=== PATIENT | male | born 1955 | race Caucasian/White ===

== ENCOUNTER → 2018-04-24 | Outpatient (CLI) | payer OTHER ==
--- NOTE | 2018-04-24 15:34 | KCIC ---
EXAM: Bilateral hips and pelvis, 5 views. HISTORY: Pain and clicking. COMPARISON: None. FINDINGS: A frontal view of the pelvis and frontal and frog-leg views of both hips are obtained. There is slight sacralization of the right L5 transverse process. 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 There is no fracture, dislocation or subluxation. The femoral heads are normal in configuration. There is no significant decreased femoral head-neck offset to suggest significant impingement. IMPRESSION: No acute osseous finding. Electronically signed by: Rosalie House MD (04/24/2018 3:30 PM) [place] [id number]
== END | disposition home or self-care (01) ==
LOC: KCIC 14:55
PROVIDERS: ATTEND Physician Assistant Medical
DX: M25.552 Pain in left hip (principal); M25.551 Pain in right hip
CPT/HCPCS: 73521

== ENCOUNTER 2019-01-29 00:11 | Emergency (ER) | payer OTHER ==
[~2019-01-29] VITALS: Ht 182.9 cm; Wt 84.8 kg
[2019-01-29] MEDS ORDERED: PRAV20TA2 PO (00:29)
[2019-01-29] MEDS ORDERED: TAMS0.4C97 PO (00:29)
[2019-01-29 00:35] LABS: BASO % 1 % (0-3); EOS # 0.1 x10^3/uL (0.0-0.7); EOS % 2 % (0-3); HEMOGLOBIN 14.3 g/dL (13.0-17.5); LYMPH # 2.1 x10^3/uL (1.0-4.8); LYMPH % 29 % (24-48); MEAN CORPUSCULAR HEMOGLOBIN 30 pg (25-35); MEAN CORPUSCULAR HGB CONC 34 g/dL (31-37); MEAN CORPUSCULAR VOLUME 89 fL (79-100); MONO # 0.8 x10^3/uL (0.0-1.1); MONO % 11 % (0-9); NEUT # 4.1 x10^3uL (1.8-7.7); NEUT % 57 % (31-73); PLATELET COUNT 208 x10^3/uL (140-400); RED CELL DISTRIBUTION WIDTH 13.7 % (11.5-14.5); WHITE BLOOD COUNT 7.2 x10^3/uL (4.0-11.0)
[2019-01-29 00:43] LABS: CALCIUM 8.9 mg/dL (8.5-10.1); CREATININE 1.4 mg/dL (0.7-1.3); POTASSIUM 3.8 mmol/L (3.5-5.1)
[2019-01-29] MEDS ORDERED: KETOROLAC 30 MG/ML VIAL. IV ONE (00:45)
[2019-01-29] MEDS ORDERED: IV NORMAL SALINE 1000ML BAG 1,000 ML IV ONE (00:45)
[2019-01-29 00:49] LABS: ALBUMIN 3.8 g/dL (3.4-5.0); ALBUMIN/GLOBULIN RATIO 1.2 (1.0-1.7); TOTAL BILIRUBIN 0.4 mg/dL (0.2-1.0); TOTAL PROTEIN 7.1 g/dL (6.4-8.2)
--- NOTE | 2019-01-29 01:55 | RAD ---
INDICATION: Flank pain COMPARISON: None. TECHNIQUE: Axial CT images obtained through the abdomen and pelvis without contrast. Limited assessment of solid organ structures and vasculature secondary to lack of intravenous contrast.. One or more of the following individualized dose reduction techniques were utilized for this examination: 1. Automated exposure control; 2. Adjustment of the mA and/or kV according to patient size; 3. Use of iterative reconstruction technique. FINDINGS: Abdominal aorta is not aneurysmal. Scattered calcific atherosclerosis. No intrahepatic bile duct dilation. Gallbladder partially contracted. Haziness of the mesenteric fat in the upper abdomen with some prominent lymph nodes in the region. This is just inferior to the pancreas. Spleen unremarkable. No left-sided hydronephrosis. Urinary bladder is partially distended. No right-sided hydronephrosis. The appendix does not appear inflamed. No dilated loops of bowel to suggest obstruction. Questionable mild indistinctness of fat adjacent to the urinary bladder. Degenerative changes spine with multilevel central canal and neural foraminal stenosis. IMPRESSION: 1. No evidence of bowel obstruction. 2. No hydronephrosis. 3. There is some questionable mild indistinctness the fat adjacent to the urinary bladder. This is a questionable finding but would correlate with symptoms to ensure that this is not secondary to early inflammation from cystitis. 4. Within the mesentery of the upper abdomen there is mild haziness with some scattered mildly prominent lymph nodes in the region. This is located inferior to the pancreas. Nonspecific appearance with causes such as mesenteric panniculitis within the differential. This is not centered around the pancreas but would still correlate with symptoms in the region to ensure that there is not an alternative cause such as pancreatitis which would be considered less likely. Electronically signed by: Alexandr Ocasio MD (01/29/2019 1:52 AM) [facility]
[2019-01-29 02:45] LABS: BILIRUBIN,URINE NEGATIVE (NEG); CLARITY,URINE CLEAR; COLOR,URINE YELLOW; NITRITE,URINE NEGATIVE (NEG); PROTEIN,URINE NEGATIVE (NEG-TRACE); UROBILINOGEN,URINE 0.2 mg/dL (0.2 mg/dL)
[2019-01-29 02:58] LABS: BACTERIA,URINE 0 /HPF (0-FEW); RBC,URINE 0 /HPF (0-2); SQUAMOUS EPITHELIAL CELL,UR OCC /LPF; WBC,URINE OCC /HPF (0-4)
[2019-01-29 03:07] VITALS: BP 149/70
--- NOTE | 2019-01-29 03:07 | PHYS DOC ---
Past Medical History Past Medical History: High Cholesterol Additional Past Medical Histor: enlarged prostate Past Surgical History: No Surgical History Alcohol Use: None Drug Use: None Adult General Chief Complaint Chief Complaint: FLANK PAIN [facility] HPI 63-year-old male who is relatively healthy presents with a 2 week history of waxing and waning lower abdominal pain. He states the pain did get a little worse over the last couple of days. He states this woke him up the last 2 mornings. He states the pain is in his low abdomen but does radiate out to his flanks. He did have what he describes a small amount of blood in his urine. He was scared that he had kidney stones. He denies any fever chills or sweats. He's had no nausea or vomiting. He denies any melena or hematochezia. He states his b owel movements have been normal.[] Review of Systems Review of Systems Constitutional: Denies fever or chills [] Eyes: Denies change in visual acuity, redness, or eye pain [] HENT: Denies nasal congestion or sore throat [] Respiratory: Denies cough or shortness of breath [] Cardiovascular: No additional information not addressed in HPI [] GI: Per history of present illness[] : Denies dysuria or hematuria [] Musculoskeletal: Denies back pain or joint pain [] Integument: Denies rash or skin lesions [] Neurologic: Denies headache, focal weakness or sensory changes [] Endocrine: Denies polyuria or polydipsia [] All other systems were reviewed and found to be within normal limits, except as documented in this note. Current Medications Current Medications Current Medications Medications (Trade) Dose Ordered Sig/[facility] Start Time Stop Time Status Last Admin Dose Admin Ketorolac Tromethamine (Toradol 30mg Vial) 30 mg 1X ONCE 01/29/19 00:45 01/29/19 00:46 DC 01/29/19 01:12 30 MG Sodium Chloride 1,000 ml @ 1,000 mls/hr 1X ONCE 01/29/19 00:45 01/29/19 01:44 DC 01/29/19 01:10 1,000 MLS/HR Allergies Allergies Allergies Coded Allergies Type Severity Reaction Last Updated Verified No Known Drug Allergies 01/29/19 No Physical Exam Physical Exam Constitutional: Well developed, well nourished, no acute distress, non-toxic appearance. [] HENT: Normocephalic, atraumatic, bilateral external ears normal, oropharynx moist, no oral exudates, nose normal. [] Eyes: PERRLA, EOMI, conjunctiva normal, no discharge. [] Neck: Normal range of motion, no tenderness, supple, no stridor. [] Cardiovascular:Heart rate regular rhythm, no murmur [] Lungs & Thorax: Bilateral breath sounds clear to auscultation [] Abdomen: Bowel sounds normal, soft, no tenderness, no masses, no pulsatile masses. [] Skin: Warm, dry, no erythema, no rash. [] Back: No tenderness, no CVA tenderness. [] Extremities: No tenderness, no cyanosis, no clubbing, ROM intact, no edema. [] Neurologic: Alert and oriented X 3, normal motor function, normal sensory function, no focal deficits noted. [] Psychologic: Affect normal, judgement normal, mood normal. [] Current Patient Data Vital Signs Vital Signs Date Time Temp Pulse Resp B/P (MAP) Pulse Ox O2 Delivery O2 Flow Rate FiO2 01/29/19 00:30 97.9 76 20 138/86 (103) 98 Room Air 97.9 Lab Values Laboratory Tests Test 01/29/19 00:25 01/29/19 02:25 White Blood Count 7.2 x10^3/uL (4.0-11.0) Red Blood Count 4.70 x10^6/uL (4.30-5.70) Hemoglobin 14.3 g/dL (13.0-17.5) Hematocrit 42.0 % (39.0-53.0) Mean Corpuscular Volume 89 fL (79-100) Mean Corpuscular Hemoglobin 30 pg (25-35) Mean Corpuscular Hemoglobin Concent 34 g/dL (31-37) Red Cell Distribution Width 13.7 % (11.5-14.5) Platelet Count 208 x10^3/uL (140-400) Neutrophils (%) (Auto) 57 % (31-73) Lymphocytes (%) (Auto) 29 % (24-48) Monocytes (%) (Auto) 11 % (0-9) H Eosinophils (%) (Auto) 2 % (0-3) Basophils (%) (Auto) 1 % (0-3) Neutrophils # (Auto) 4.1 x10^3uL (1.8-7.7) Lymphocytes # (Auto) 2.1 x10^3/uL (1.0-4.8) Monocytes # (Auto) 0.8 x10^3/uL (0.0-1.1) Eosinophils # (Auto) 0.1 x10^3/uL (0.0-0.7) Basophils # (Auto) 0.0 x10^3/uL (0.0-0.2) Sodium Level 143 mmol/L (136-145) Potassium Level 3.8 mmol/L (3.5-5.1) Chloride Level 105 mmol/L (98-107) Carbon Dioxide Level 28 mmol/L (21-32) Anion Gap 10 (6-14) Blood Urea Nitrogen 20 mg/dL (8-26) Creatinine 1.4 mg/dL (0.7-1.3) H Estimated GFR (Cockcroft-Gault) 51.0 BUN/Creatinine Ratio 14 (6-20) Glucose Level 103 mg/dL (70-99) H Calcium Level 8.9 mg/dL (8.5-10.1) Total Bilirubin 0.4 mg/dL (0.2-1.0) Aspartate Amino Transferase (AST) 24 U/L (15-37) Alanine Aminotransferase (ALT) 42 U/L (16-63) Alkaline Phosphatase 90 U/L (46-116) Total Protein 7.1 g/dL (6.4-8.2) Albumin 3.8 g/dL (3.4-5.0) Albumin/Globulin Ratio 1.2 (1.0-1.7) Lipase 119 U/L (73-393) Urine Collection Type Unknown Urine Color Yellow Urine Clarity Clear Urine pH 6.0 Urine Specific [place] 1.015 Urine Protein Negative mg/dL (NEG-TRACE) Urine Glucose (UA) Negative mg/dL (NEG) Urine Ketones (Stick) Negative mg/dL (NEG) Urine Blood Negative (NEG) Urine Nitrite Negative (NEG) Urine Bilirubin Negative (NEG) Urine Urobilinogen Dipstick 0.2 mg/dL (0.2 mg/dL) Urine Leukocyte Esterase Negative (NEG) Urine RBC 0 /HPF (0-2) Urine WBC Occ /HPF (0-4) Urine Squamous Epithelial Cells Occ /LPF Urine Bacteria 0 /HPF (0-FEW) Urine Mucus Slight /LPF Laboratory Tests 01/29/19 00:25 Laboratory Tests 01/29/19 00:25 EKG EKG [] Radiology/Procedures Radiology/Procedures [] Impressions: PROCEDURE: CT ABDOMEN PELVIS WO CONTRAST INDICATION: Flank pain COMPARISON: None. TECHNIQUE: Axial CT images obtained through the abdomen and pelvis without contrast. Limited assessment of solid organ structures and vasculature secondary to lack of intravenous contrast.. One or more of the following individualized dose reduction techniques were utilized for this examination: 1. Automated exposure control; 2. Adjustment of the mA and/or kV according to patient size; 3. Use of iterative reconstruction technique. FINDINGS: Abdominal aorta is not aneurysmal. Scattered calcific atherosclerosis. No intrahepatic bile duct dilation. Gallbladder partially contracted. Haziness of the mesenteric fat in the upper abdomen with some prominent lymph nodes in the region. This is just inferior to the pancreas. Spleen unremarkable. No left-sided hydronephrosis. Urinary bladder is partially distended. No right-sided hydronephrosis. The appendix does not appear inflamed. No dilated loops of bowel to suggest obstruction. Questionable mild indistinctness of fat adjacent to the urinary bladder. Degenerative changes spine with multilevel central canal and neural foraminal stenosis. IMPRESSION: 1. No evidence of bowel obstruction. 2. No hydronephrosis. 3. There is some questionable mild indistinctness the fat adjacent to the urinary bladder. This is a questionable finding but would correlate with symptoms to ensure that this is not secondary to early inflammation from cystitis. 4. Within the mesentery of the upper abdomen there is mild haziness with some scattered mildly prominent lymph nodes in the region. This is located inferior to the pancreas. Nonspecific appearance with causes such as mesenteric panniculitis within the differential. This is not centered around the pancreas but would still correlate with symptoms in the region to ensure that there is not an alternative cause such as pancreatitis which would be considered less likely. Course & Med Decision Making Course & Med Decision Making Pertinent Labs and Imaging studies reviewed. (See chart for details) [ED course: Evaluation reveals a 63-year-old male who never really appeared any significant distress. His abdominal exam was benign. His repeat abdominal exam was benign. His abdominal CT scan did not show anything significant. His urinalysis was negative as was his blood work. Patient was symptom-free when I rechecked on him at 3 AM. Patient can go home.] Dragon Disclaimer Dragon Disclaimer This electronic medical record was generated, in whole or in part, using a voice recognition dictation system. Departure Departure Impression: Primary Impression: Abdominal pain Disposition: HOME, SELF-CARE Condition: IMPROVED Referrals: GORDY DIEHL PA-C (PCP) Patient Instructions: Abdominal Pain Additional Instructions: Return to the emergency department with any new or concerning symptoms Problem Qualifiers Primary Impression: Abdominal pain Abdominal location: lower abdomen, unspecified Qualified Codes: R10.30 - Lower abdominal pain, unspecified PABLO CHAMPION DO Jan 29, 2019 03:07
== END 2019-01-29 03:23 | disposition home or self-care (01) ==
LOC: ER 00:11
DX: R10.30 Lower abdominal pain, unspecified (principal); R31.9 Hematuria, unspecified; E78.00 Pure hypercholesterolemia, unspecified; N40.0 Benign prostatic hyperplasia without lower urinary tract symptoms
CPT/HCPCS: 36415; 74176; 80053; 81001; 83690; 85025; 96374; 99285; J1885; J7030

== ENCOUNTER 2019-09-10 16:31 | Inpatient (IN) | payer OTHER ==
[~2019-09-10] VITALS: Ht 182.9 cm; Wt 84.4 kg
[~2019-09-10 16:31] MED LIST: PRAV20TA2 PO; TAMS0.4C97 PO
[2019-09-10 16:45] VITALS: BP 157/74
--- NOTE | 2019-09-10 17:53 | EKG ---
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
[2019-09-10] MEDS: fentaNYL PF VIAL 100 MCG/2 ML VIAL IVP PRN ×3 (18:00→22:46)
[2019-09-10 18:16] LABS: BASO % 0 % (0-3); EOS # 0.1 x10^3/uL (0.0-0.7); EOS % 1 % (0-3); HEMATOCRIT 42.8 % (39.0-53.0); HEMOGLOBIN 14.4 g/dL (13.0-17.5); LYMPH # 1.9 x10^3/uL (1.0-4.8); LYMPH % 18 % (24-48); MEAN CORPUSCULAR HEMOGLOBIN 29 pg (25-35); MEAN CORPUSCULAR HGB CONC 34 g/dL (31-37); MEAN CORPUSCULAR VOLUME 88 fL (79-100); MONO # 0.9 x10^3/uL (0.0-1.1); MONO % 9 % (0-9); NEUT # 7.8 x10^3/uL (1.8-7.7); NEUT % 73 % (31-73); PLATELET COUNT 224 x10^3/uL (140-400); RED BLOOD COUNT 4.88 x10^6/uL (4.30-5.70); RED CELL DISTRIBUTION WIDTH 13.7 % (11.5-14.5); WHITE BLOOD COUNT 10.7 x10^3/uL (4.0-11.0)
[2019-09-10] MEDS ORDERED: PRAV40TA2 PO (18:16)
[2019-09-10] MEDS ORDERED: OMEP20CA16 PO (18:17)
[2019-09-10 18:33] LABS: ALBUMIN 3.9 g/dL (3.4-5.0); ALBUMIN/GLOBULIN RATIO 1.3 (1.0-1.7); C-REACTIVE PROTEIN 7.4 mg/L (0-3.3); CALCIUM 9.2 mg/dL (8.5-10.1); CREATININE 1.2 mg/dL (0.7-1.3); POTASSIUM 4.2 mmol/L (3.5-5.1); TOTAL BILIRUBIN 0.3 mg/dL (0.2-1.0); TOTAL PROTEIN 6.9 g/dL (6.4-8.2)
[2019-09-10 19:29] VITALS: BP 135/77
[2019-09-10] MEDS ORDERED: IOHEXOL 350 MG/ML 100 ML VIAL. IV ONE (19:45)
--- NOTE | 2019-09-10 22:18 | RAD ---
Exam: CT of chest with contrast INDICATION: Chest pain TECHNIQUE: Sequential axial images through the chest obtained following the administration of 100 mL of Omni 350 IV contrast. Sagittal and coronal reformatted images were reconstructed from the axial data and reviewed. 3-D reformatted images were reconstructed from the axial data and reviewed. Comparisons: 01/29/2019 FINDINGS: Visualized portions of the thyroid are unremarkable. No enlarged mediastinal lymph nodes are identified. Heart size is normal. Small pericardial effusion. Thoracic aorta has a normal course and caliber. Pulmonary artery is not enlarged. No pulmonary embolus identified within the main, lobar or segmental pulmonary arteries. Airways are patent. Strandy opacities is been portion the lungs likely representing atelectasis. No consolidation or pneumothorax. No suspicious lung nodules. No pleural effusion or thickening. Visualized upper abdomen is unremarkable. No suspicious osseous lesions or acute fractures. IMPRESSION: No pulmonary embolus identified within the main, lobar or segmental pulmonary arteries. Exposure: One or more of the following in the visualized dose reduction techniques were utilized for this examination: 1. Automated exposure control 2. Adjustment of the MA and/or KV according to patient size 3. Use of iterative of reconstructive technique Electronically signed by: Nguyễn Mars MD (09/10/2019 10:15 PM) [facility]
[2019-09-10 22:28] VITALS: BP 126/71
[2019-09-10] MEDS: ATORVASTATIN CALCIUM 10 MG TABLET. PO SCH (22:44)
[2019-09-10] MEDS: TAMSULOSIN 0.4 MG CAP.ER.24H. PO SCH (22:45)
[2019-09-11 02:54] VITALS: BP 124/63
[2019-09-11] MEDS: fentaNYL PF VIAL 100 MCG/2 ML VIAL IVP PRN ×2 (03:44→07:37)
[2019-09-11 07:00] VITALS: BP 106/63
[2019-09-11] MEDS: PANTOPRAZOLE 40 MG TABLET.DR. PO SCH (07:36)
--- NOTE | 2019-09-11 08:15 | PDOC1 ---
H & P. HPI: Mr. Montgomery is a 63-year-old male with a past medical history of hyperlipidemia, GERD, and history of pericarditis in the 1980s, who presented to the clinic yesterday with 2 day history of central sharp chest pain that he noted did not radiate anywhere, seems to be improved with leaning forward and was significantly worsened with respiration. He also notes some mild cough. He denies fever, chills, body aches. Chest pain does not radiate anywhere and is constant with respiration. He noted the pain to be between 8-10 out of 10 in severity and reminded him significantly of the pain that he experienced when he had pericarditis in the past. He was evaluated in clinic with an EKG which showed mild ST elevation in leads I,aVL and V4-V6. After discussion with the patient, it was determined that admission for thorough evaluation and cardiology consultation was appropriate. His labs are significant for CRP elevated at 7.4. His troponins are negative 3. He also has normal white blood cell count with mild left shift. His creatinine is 1.2 with a GFR of 61, which is equivalent to his baseline. A CT Angio was performed to rule out pulmonary embolism, aortic dissection, pneumonia, and it was negative for all of these findings, though did show a small pericardial effusion. He notes that pain is about the same this morning. No new concerns. ROS: Constitutional: Denies fever, fatigue, chills HEENT: Denies sore throat, vision changes Cardio: Denies chest pain, dyspnea with exertion, syncope, palpitations, edema Pulmonary: Denies shortness of breath, cough, wheezing GI: Denies nausea, vomiting, diarrhea, constipation : Denies dysuria, frequency, urgency, incontinence Skin: Denies new lesions Neuro: Denies weakness, paresthesias PMH: As above FAMILY HX: Father due to lung cancer. Otherwise noncontributory SOCIAL HX: Nonsmoker, no significant alcohol use or drug use. SURGICAL HX: He has had previous knee surgery, heel surgery, tonsillectomy and sinus surgery. MEDS: Reviewed and reconciled ALLERGIES: Reviewed PE: Alert, oriented, no acute distress EOMI, sclera non-icteric Neck supple Mildly tachycardic, regular rhythm, no murmur, no definitive rub appreciated with leaning forward CTAB, no wheezes, crackles or rhonchi, patient appears to be in pain with deep respirations Soft, NT, ND, normal bowel sounds No edema, cyanosis. Normal capillary refill. Calm, cooperative, mood/affect within normal limits ASSESSMENT & PLAN: Likely acute pericarditis, given elevated CRP, EKG changes, small pericardial effusion noted on CT Hyperlipidemia GERD Stage II CKD, at baseline Cardiology has been consulted Await echo Start ibuprofen 600 mg TID scheduled with colchicine 0.6 mg BID ALEXIS WOLFE MD Sep 11, 2019 08:15
[2019-09-11 08:23] LABS: CHOLESTEROL/HDL RATIO 4.4
[2019-09-11] MEDS: IBUPROFEN 200 MG TABLET. PO SCH ×3 (08:59→21:13)
[2019-09-11] MEDS: COLCHICINE 0.6 MG TABLET PO SCH ×2 (09:00→21:13)
--- NOTE | 2019-09-11 09:13 | PDOC2 ---
ZOE OLEARY ELEVATOR REPAIRER HELPER 09/11/19 0913: CARDIAC CONSULT DATE OF CONSULT Date of Consult DATE: 09/11/19 TIME: 08:42 REASON FOR CONSULT Reason for Consult: Chest pain, possible pericarditis REFERRING PHYSICIAN Referring Physician: Trusty SOURCE Source: Chart review, Patient HISTORY OF PRESENT ILLNESS HISTORY OF PRESENT ILLNESS This is a pleasant 63 yo male admitted for complains of chest pain. Reports that he started having this left upper chest pain 2 days ago. This pain just started while he was laying down. This is sharp duplicated with cough, supine position relieved when sitting up and also duplicated with deep breathing. No ARREOLA and no exertional CP. No vomiting. He thought that this was his GERD acting up. Also he has a little bit of sinus congestion but no rhinorrhea, sneezing but had some dry coughing spell last night which hurt his chest. He did have sinusitis Jhonatan and was treated with antibiotics. His pain is sharp that goes back and forth to his left inferior scapular region to anterior region. No recent falls or injury and no leg swelling or pain. 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 He does have hx of pericarditis in 1986 which the symptoms are about the same he said. Denies any palpiations, jaw pain and no diaphoresis. PAST MEDICAL HISTORY Cardiovascular: Hyperlipidemia, Other (Pericarditis) CENTRAL NERVOUS SYSTEM: Other (No pertinent history) GI: GERD Heme/Onc: No pertinent hx Hepatobiliary: No pertinent hx Psych: No pertinent hx Musculoskeletal: low back pain, Osteoarthritis Infectious disease: No pertinent hx ENT: Sincusitis, Other (PAUMA) Renal/: Benign prostatic enlarg. Endocrine: No pertinent hx Dermatology: No pertinent hx PAST SURGICAL HISTORY Past Surgical History: Tonsillectomy FAMILY HISTORY Family History noncontributory, no hx of autoimmune disease SOCIAL HISTORY Smoke: Quit (remotely) ALCOHOL: occassional Drugs: None Lives: with Family (spouse) CURRENT MEDICATIONS CURRENT MEDICATIONS Current Medications Medications (Trade) Dose Ordered Sig/Mark Route PRN Reason Start Time Stop Time Status Last Admin Dose Admin Fentanyl Citrate (Fentanyl 2ml Vial) 50 mcg PRN Q2HR PRN IVP PAIN 09/10/19 17:00 09/11/19 07:37 Tamsulosin HCl (Flomax) 0.4 mg HS PO 09/10/19 21:00 09/10/19 22:45 Pantoprazole Sodium (Protonix) 40 mg DAILYAC PO 09/11/19 07:30 09/11/19 07:36 Atorvastatin Calcium (Lipitor) 10 mg QHS PO 09/10/19 21:00 09/10/19 22:44 ALLERGIES ALLERGIES: Coded Allergies: No Known Drug Allergies (Unverified , 01/29/19) ROS Review of System 14 point ROS evaluated with pertinent positives noted per HPI PHYSICAL EXAM General: Alert, Oriented X3, Cooperative, No acute distress HEENT: Atraumatic, Mucous membr. moist/pink Lungs: Clear to auscultation, Normal air movement Heart: Regular rate (SR), Normal S1, Normal S2, No murmurs Abdomen: Soft, No tenderness Extremities: No cyanosis, No edema Skin: No breakdown, No significant lesion Neuro: Normal speech, Sensation intact Psych/Mental Status: Mental status NL, Mood NL MUSCULOSKELETAL: Osteoarthritic changes both hands VITALS/I&O VITALS/I&O: Vital Signs Date Time Temp Pulse Resp B/P (MAP) Pulse Ox O2 Delivery O2 Flow Rate FiO2 09/11/19 07:37 Room Air 09/11/19 02:54 98.4 108 20 124/63 (83) 97 98.4 09/10/19 20:00 2.0 I & O 09/10/19 09/10/19 09/11/19 15:00 23:00 07:00 Intake Total 0 ml Output Total 800 ml Balance 0 ml -800 ml LABS Lab: Laboratory Tests Test 09/10/19 18:00 09/10/19 22:00 09/11/19 00:20 White Blood Count 10.7 x10^3/uL (4.0-11.0) Red Blood Count 4.88 x10^6/uL (4.30-5.70) Hemoglobin 14.4 g/dL (13.0-17.5) Hematocrit 42.8 % (39.0-53.0) Mean Corpuscular Volume 88 fL (79-100) Mean Corpuscular Hemoglobin 29 pg (25-35) Mean Corpuscular Hemoglobin Concent 34 g/dL (31-37) Red Cell Distribution Width 13.7 % (11.5-14.5) Platelet Count 224 x10^3/uL (140-400) Neutrophils (%) (Auto) 73 % (31-73) Lymphocytes (%) (Auto) 18 % (24-48) L Monocytes (%) (Auto) 9 % (0-9) Eosinophils (%) (Auto) 1 % (0-3) Basophils (%) (Auto) 0 % (0-3) Neutrophils # (Auto) 7.8 x10^3/uL (1.8-7.7) H Lymphocytes # (Auto) 1.9 x10^3/uL (1.0-4.8) Monocytes # (Auto) 0.9 x10^3/uL (0.0-1.1) Eosinophils # (Auto) 0.1 x10^3/uL (0.0-0.7) Basophils # (Auto) 0.0 x10^3/uL (0.0-0.2) Erythrocyte Sedimentation Rate 8 (0-15) Sodium Level 141 mmol/L (136-145) Potassium Level 4.2 mmol/L (3.5-5.1) Chloride Level 105 mmol/L (98-107) Carbon Dioxide Level 31 mmol/L (21-32) Anion Gap 5 (6-14) L Blood Urea Nitrogen 20 mg/dL (8-26) Creatinine 1.2 mg/dL (0.7-1.3) Estimated GFR (Cockcroft-Gault) 61.0 BUN/Creatinine Ratio 17 (6-20) Glucose Level 96 mg/dL (70-99) Calcium Level 9.2 mg/dL (8.5-10.1) Total Bilirubin 0.3 mg/dL (0.2-1.0) Aspartate Amino Transferase (AST) 17 U/L (15-37) Alanine Aminotransferase (ALT) 36 U/L (16-63) Alkaline Phosphatase 76 U/L (46-116) Troponin I Quantitative < 0.017 ng/mL (0.000-0.055) < 0.017 ng/mL (0.000-0.055) < 0.017 ng/mL (0.000-0.055) C-Reactive Protein, Quantitative 7.4 mg/L (0-3.3) H Total Protein 6.9 g/dL (6.4-8.2) Albumin 3.9 g/dL (3.4-5.0) Albumin/Globulin Ratio 1.3 (1.0-1.7) Triglycerides Level 74 mg/dL (0-150) Cholesterol Level 161 mg/dL (0-200) LDL Cholesterol, Calculated 109 mg/dL (0-100) H VLDL Cholesterol, Calculated 15 mg/dL (0-40) Non-HDL Cholesterol Calculated 124 mg/dL (0-129) HDL Cholesterol 37 mg/dL (40-60) L Cholesterol/HDL Ratio 4.4 Laboratory Tests 09/10/19 18:00 Laboratory Tests 09/10/19 18:00 ASSESSMENT/PLAN ASSESSMENT/PLAN 1. Acute pericarditis: +trapezius ridge pain with diffuse ST elevation. Likely viral in etiology 2. HLP 3. Small pericardial effusion: Per CT. no hemodynamic compromise 4. GERD 5. Prior sinusitis Recommendations 1. NSAID therapy. on PPI already 2. Negative for PE. TTE today 3. LDL not on goal, increase statin, defer to PCP TANNA SHERMAN MD 09/11/19 1151: CARDIAC CONSULT ASSESSMENT/PLAN ASSESSMENT/PLAN Patient seen and examined. Agree with [facility] SPECIAL EDUCATION TEACHER's assessment and plan. Clinical presentation, physical exam and EKG findings consistent with acute pericarditis. Patient has had on other episode of pericarditis several years ago. Agree with high-dose NSAID's and check 2-D echocardiogram. Thank you for your consultation. ZOE OLEARY APRN Sep 11, 2019 09:13 TANNA SHERMAN MD Sep 11, 2019 11:51
[2019-09-11 11:00] VITALS: BP 99/57
[2019-09-11 11:39] LABS: INFLUENZA A PATIENT NEGATIVE (NEGATIVE); INFLUENZA B PATIENT NEGATIVE (NEGATIVE)
--- NOTE | 2019-09-11 12:18 | CARD ---
MR#: [id number] Date of Study: 09/11/2019 Ordering Physician: ALEXIS WOLFE, Referring Physician: ALEXIS WOLFE, Tech: Sarahi Decker RDCS APPROVED REPORT EXAM: Two-dimensional and M-mode echocardiogram with Doppler and color Doppler. Other Information Quality : Good INDICATION Chest Pain 2D DIMENSIONS RVDd2.4 (2.9-3.5cm)Left Atrium(2D)3.1 (1.6-4.0cm) IVSd0.7 (0.7-1.1cm)Aortic Root(2D)2.9 (2.0-3.7cm) LVDd4.4 (3.9-5.9cm)LVOT Diameter2.0 (1.8-2.4cm) PWd0.8 (0.7-1.1cm)LVDs2.4 (2.5-4.0cm) FS (%) 30.0 %SV66.6 ml LVEF(%)60.0 (>50%) Aortic Valve AoV Peak Rod.148.7cm/sAoV VTI20.0cm AO Peak GR.8.8mmHgLVOT VTI 24.02cm AO Mean GR.5mmHgAVA (VTI)3.70cm2 Mitral Valve MV E Mxgbiypr71.9cm/sMV DECEL QIQS323eq MV A Gpkvocus02.0cm/sE/A Ratio0.8 TDI Lateral E' P. V9.91cm/sMedial E' P. V8.69cm/s E/Lateral E'5.8E/Medial E'6.7 Tricuspid Valve TR P. Pfwcxcpn366to/sRAP IAAIJJLW2msXa TR Peak Gr.40ygSqTVCJ84sjFa Pulmonary Vein S1 Hdlhmsyk38.2cm/sS2 Iyrcbbts28.11cm/s D2 Armjwsbp81.1cm/s LEFT VENTRICLE The left ventricle is normal size. There is normal left ventricular wall thickness. The left ventricu lar systolic function is normal. The Ejection Fraction is 55-60%. There is normal LV segmental wall m otion. Transmitral Doppler flow pattern is Grade I-abnormal relaxation pattern. RIGHT VENTRICLE The right ventricle is normal size. The right ventricular systolic function is normal. ATRIA The left atrium size is normal. The right atrium size is normal. The interatrial septum is intact wit h no evidence for an atrial septal defect or patent foramen ovale as noted on 2-D or Doppler imaging. AORTIC VALVE The aortic valve is calcified but opens well. Doppler and Color Flow revealed no significant aortic r egurgitation. There is no significant aortic valvular stenosis. MITRAL VALVE The mitral valve is calcified but opens well. There is no evidence of mitral valve prolapse. There is no mitral valve stenosis. Doppler and Color-flow revealed trace mitral regurgitation. TRICUSPID VALVE The tricuspid valve is normal in structure and function. Doppler and Color Flow revealed trace tricus pid regurgitation. The PA pressure was estimated at 34 mmHg. There is no tricuspid valve stenosis. PULMONIC VALVE The pulmonic valve is not well visualized. Doppler and Color Flow revealed no pulmonic valvular regur gitation. There is no pulmonic valvular stenosis. GREAT VESSELS The aortic root is normal in size. The ascending aorta is normal in size. The IVC is normal in size a nd collapses >50% with inspiration. PERICARDIAL EFFUSION There is no evidence of significant pericardial effusion. Critical Notification Critical Value: No <Conclusion> The left ventricular systolic function is normal. The Ejection Fraction is 55-60%. There is normal LV segmental wall motion. Transmitral Doppler flow pattern is Grade I-abnormal relaxation pattern. Trace mitral regurgitation. Trace tricuspid regurgitation. The PA pressure was estimated at 34 mmHg. There is no evidence of significant pericardial effusion. Signed by : Bienvenido Eduardo, Electronically Approved : 09/11/2019 12:17:38
--- NOTE | 2019-09-11 14:15 | NUR ---
SS following for discharge planning. SS reviewed pt chart. Pt is self pay pt. HCFS following for self pay status. Pt is from home with spouse and is currently on room air. SS will continue to follow for discharge planning.
[2019-09-11 15:00] VITALS: BP 97/60
[2019-09-11 19:35] VITALS: BP 115/56
--- NOTE | 2019-09-11 20:01 | EKG ---
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
--- NOTE | 2019-09-11 20:11 | NUR ---
Pt states he "feels much better than I did." But does state 5/10 chest pain with deep inspiration or when bending over. ST elevation noted on tele and on 12 lead EKG obtained stat at 1947. notes mention EKG consistent with pericarditis, but Dr. Zamora paged to review. Order received for follow up 12 lead EKG in am. Will continue to monitor.
[2019-09-11] MEDS: FLUTICASONE 50MCG/NASAL SPRAY 16GM BOTTLE. NS SCH (21:11)
[2019-09-11] MEDS: TAMSULOSIN 0.4 MG CAP.ER.24H. PO SCH (21:12)
[2019-09-11] MEDS: ATORVASTATIN CALCIUM 10 MG TABLET. PO SCH (21:12)
[2019-09-11 23:40] VITALS: BP 119/57
[2019-09-12 03:25] VITALS: BP 108/56
--- NOTE | 2019-09-12 05:56 | EKG ---
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
[2019-09-12 07:47] VITALS: BP 100/52
[2019-09-12] MEDS: FLUTICASONE 50MCG/NASAL SPRAY 16GM BOTTLE. NS SCH (08:02)
[2019-09-12] MEDS: COLCHICINE 0.6 MG TABLET PO SCH (08:02)
[2019-09-12] MEDS: IBUPROFEN 200 MG TABLET. PO SCH (08:03)
[2019-09-12] MEDS: PANTOPRAZOLE 40 MG TABLET.DR. PO SCH (08:03)
[2019-09-12] MEDS ORDERED: COLC0.6T34 PO (09:19)
[2019-09-12] MEDS ORDERED: IBUP-1670 PO (09:19)
[2019-09-12 11:27] VITALS: BP 111/57
--- NOTE | 2019-09-12 12:11 | NUR ---
Discharge Note: LORRAINE RANDHAWA Discharge instructions and discharge home medications reviewed with Patient and a copy given. All questions have been answered and understanding verbalized. The following instructions and handouts were given: COLCRYS, IBUPROFEN, PERICARDITIS Discontinued lines and drains: Peripheral IV intact. Patient discharged to Home or Self Care with Self via Wheelchair
--- NOTE | 2019-09-12 14:04 | DS ---
DATE OF DISCHARGE: 09/12/2019 PRIMARY DIAGNOSIS: Pericarditis. ADDITIONAL DIAGNOSES: Pleuritic chest pain, hyperlipidemia, gastroesophageal reflux disease, benign prostatic hypertrophy. CHIEF COMPLAINT AND HISTORY OF PRESENT ILLNESS: This is a 63-year-old white male admitted with the complaints of chest pain that happened rather abruptly, bringing him to the Emergency Room. It was worse with the breath as well as coughing. It was relieved by leaning forward. He had a prior history back in 1986 of pericarditis out of the blue and never was explained. SUMMARY OF STAY: The patient was admitted and started on ibuprofen and colchicine with improvement of his pain to the point where he was almost pain free on the day of discharge, but still a little bit with a deep breath. He had no other significant findings. Cardiology felt pericarditis was most likely an addition. It was felt he could be dismissed on the ibuprofen and colchicine with the outpatient followup next week in Dr. Ocasio's office to further direct therapy from there if any is needed. DISPOSITION: The patient is discharged to home. DIET: Regular. ACTIVITY: As tolerated, office with Dr. Ocasio or Dr. Todd this week. DISCHARGE MEDICATIONS: Listed on the med rec on his regular meds. In addition, he will be taking colchicine 0.6 b.i.d. and ibuprofen 600 t.i.d. in the interim. ERLINDA MACDONALD MD DR: BETTY/angela JOB#: [id number] / [id number] Dr. Chance Mccullough
== END 2019-09-12 12:12 | disposition home or self-care (01) | DRG 316 ==
LOC: 2 NORTH 16:31
PROVIDERS: ADMIT Family Medicine; ATTEND Family Medicine
DX: I30.9 Acute pericarditis, unspecified (principal); R07.89 Other chest pain; K21.9 Gastro-esophageal reflux disease without esophagitis; E78.5 Hyperlipidemia, unspecified
CPT/HCPCS: 36415; 71275; 80053; 80061; 84443; 84484; 85025; 85651; 86140; 87804; 93005; 93306; J3010; G0378

== ENCOUNTER → 2019-11-05 | Day surgery (SDC) | payer MEDICARE ==
[~2019-11-05] MED LIST changes: +ALBU2.5V8 NEB; +APIX5TAB PO; +ASPI-612 PO; +COLC0.6T34 PO; +HYDROmorphone 2 MG/ML VIAL IV PRN; +IBUP-1670 PO; +IV RINGERS,LACTATED 1000ML 1,000 ML IV SCH; +LIDOCAINE 2% PF 5 ML VIAL. ONE; +METO25TA4 PO; +MORPHINE SULFATE 2 MG/ML VIAL. IV PRN; +OMEP20CA16 PO; +ONDANSETRON PF 4 MG/2 ML VIAL. IV PRN; +PRAV40TA2 PO; +PROCHLORPERAZINE 10 MG/2 ML VIAL. IV PRN; +PROPOFOL 40 ML IV ONE; +SODIUM PHOSPHATES 19/7GM 133 ML ENEMA. PR ONE; +fentaNYL PF VIAL 100 MCG/2 ML VIAL IV PRN
[2019-11-05 15:10] VITALS: BP 98/60
--- NOTE | 2019-11-05 23:30 | HP ---
ADMIT DATE: 11/05/2019 REFERRING PHYSICIAN: Jaxon Barclay MD REASON FOR CONSULTATION: Iron deficiency anemia, CRC screening and dysphagia. HISTORY OF PRESENT ILLNESS: This is a 64-year-old male with past medical history significant for pericarditis, hyperlipidemia, GERD, osteoarthritis, status post sinus surgery, tonsillectomy, knee and foot surgery, seen with anemia, had colon test approximately 10 years ago which was unrevealing at that time. He does have intermittent dysphagia now for solids, but no melena and/or hematochezia. Weight and appetite are stable. He is otherwise without additional complaints. PAST MEDICAL AND SURGICAL HISTORY: 1. Iron deficiency anemia. 2. Pericarditis. 3. Hyperlipidemia. 4. Gastroesophageal reflux disease. 5. Status post sinus surgery. 6. Tonsillectomy. 7. Knee and foot surgery. ALLERGIES: None. MEDICATIONS: Include: 1. Eliquis. 2. Albuterol. 3. Aspirin. 4. Metoprolol. 5. Omeprazole. 6. Pravastatin. 7. Flomax. SOCIAL HISTORY: He is an ex-smoker, social drinker. FAMILY HISTORY: Significant for father with lung cancer. REVIEW OF SYSTEMS: Per records. PHYSICAL EXAMINATION: GENERAL: Reveals a well-nourished, well-developed male who is alert, cooperative, in no acute distress. VITAL SIGNS: Pulse 80, respirations 18, blood pressure is 129/83. LUNGS: Clear. CARDIOVASCULAR: Reveals an S1, S2 without S3, S4 or appreciable murmur. ABDOMEN: Soft abdomen, normal bowel sounds, without appreciable hepatosplenomegaly. EXTREMITIES: Reveals no cyanosis, clubbing or edema. IMPRESSION: Iron deficiency anemia, CRC screening and dysphagia. Etiology is to be determined. We would recommend upper endoscopy and colonoscopy to further assess. Risks and benefits have been discussed with the patient including risk of hemorrhage and perforation and he is willing to proceed. BERTHA GASTELUM MD DR: KARLENE/angela JOB#: [id number] / [id number]
--- NOTE | 2019-11-09 15:07 | PATHOLOGY ---
[facility] Accession Number: [id number] . 01 Material submitted: . esophagus - DISTAL ESOPHAGUS BIOPSY. Modifiers: distal . 01 Clinical history: . GERD; CRCS . 02 Diagnosis: Esophageal biopsies, distal esophagus: - Reflux esophagitis. (JPM:ria; 11/09/2019) S 11/09/2019 1138 Local . 02 Comment: Sections of the distal esophageal biopsy reveal segments of hyperplastic squamous esophageal mucosa and esophagogastric mucosa showing chronic inflammation. There is an occasional intraepithelial eosinophil. The findings are consistent with reflux esophagitis. There is no evidence of Choudhary's change, dysplasia, or malignancy. (JPM:ria; 11/09/2019) . 02 Electronically signed: . Christopher Alicea MD, Pathologist NPI- [id number] . 01 Gross description: . The specimen is received in formalin, labeled "Darian Montgomery, distal esophagus biopsy". Received are three segments of pale nix soft tissue ranging in size from 0.2 to 0.3 cm in maximum dimensions. The specimen is submitted entirely in cassette A1. ([facility]; 11/06/2019) QAC/QAC 11/06/2019 1915 Local . 02 Pathologist provided ICD-10: K21.0 . 02 CPT . 104166 Specimen Comment: A courtesy copy of this report has been sent to [phone], [phone] Specimen Comment: [id number] Specimen Comment: Report sent to / DR DIEHL Performed at: 01 [facility] [address], [place], [place] [id number] MD Gerard Philippe MD Phone: [phone] Performed at: 02 [facility] [address], [place] [id number] MD Christopher Alicea MD Phone: [phone]
== END ==
LOC: ENDOS 12:57
PROVIDERS: ATTEND Internal Medicine Gastroenterology
DX: D50.0 Iron deficiency anemia secondary to blood loss (chronic) (principal); K57.30 Diverticulosis of large intestine without perforation or abscess without bleeding; K21.0 Gastro-esophageal reflux disease with esophagitis; K22.2 Esophageal obstruction; K29.50 Unspecified chronic gastritis without bleeding; K64.0 First degree hemorrhoids; E78.5 Hyperlipidemia, unspecified; Z72.89 Other problems related to lifestyle; Z87.891 Personal history of nicotine dependence
CPT/HCPCS: 43239; 43450; 45378; J2001; J2704

== ENCOUNTER → 2019-12-24 | Outpatient (CLI) | payer MEDICARE ==
[2019-11-05 15:10] VITALS: BP 98/60
[~2019-12-24] MED LIST changes: -HYDROmorphone 2 MG/ML VIAL IV PRN; +IOHEXOL 350 MG/ML 100 ML VIAL. IV ONE; -IV RINGERS,LACTATED 1000ML 1,000 ML IV SCH; -LIDOCAINE 2% PF 5 ML VIAL. ONE; -MORPHINE SULFATE 2 MG/ML VIAL. IV PRN; -ONDANSETRON PF 4 MG/2 ML VIAL. IV PRN; -PROCHLORPERAZINE 10 MG/2 ML VIAL. IV PRN; -PROPOFOL 40 ML IV ONE; -SODIUM PHOSPHATES 19/7GM 133 ML ENEMA. PR ONE; -fentaNYL PF VIAL 100 MCG/2 ML VIAL IV PRN
--- NOTE | 2019-12-24 11:53 | RAD ---
CT ANGIOGRAPHY ABDOMEN Indication: Abdominal burning pain with meals Technique: Postcontrast CT imaging was performed of the abdomen, multiplanar reconstruction images to include MIP and 3-D reconstruction images are submitted. No oral contrast was given. Pelvis was not imaged. One or more of the following individualized dose reduction techniques were utilized for this examination: 1. Automated exposure control 2. Adjustment of the mA and/or kV according to patient size 3. Use of iterative reconstruction technique. Comparison: January 29, 2018 Findings: Not fully evaluated, there is now moderate size right pleural effusion with compressive atelectasis of the right lower lobe. There is small quantity of pericardial fluid. There is no left pleural fluid. There is hepatic steatosis. Gallbladder is present without obvious intraluminal abnormality by CT. There is no adrenal nodularity. No focal abnormality is identified of the pancreas. Somewhat nodular appearing 2.4 cm focus along the medial aspect of the spleen may be variant of accessory spleen, similar in size in interval. Visualized bowel is not dilated. There is no significant inflammatory type change about the visualized bowel. There is no free fluid or free air of the abdomen. Abdominal aortic caliber is within normal limits, no dissection flap. There is mild intimal thickening and plaque of the abdominal aorta more distally. There are single patent renal arteries bilaterally. Celiac and superior mesenteric arteries are patent. There is fusiform dilatation of the celiac artery near bifurcation about 0.9 cm transverse versus more proximal caliber near its origin about 0.4 cm. Inferior mesenteric artery is patent. Appearance of degree of gastric wall prominence could be accentuated by incomplete distention during exam. IMPRESSION: 1. There is no significant stenosis of the visualized abdominal arterial vasculature. There is fusiform dilatation of the celiac artery near bifurcation. No significant acute abnormality is identified. 2. There is hepatic steatosis. 3. There is moderate size right pleural effusion not fully evaluated, compressive atelectasis of the right lower lobe. 4. There is small quantity of pericardial fluid. 5. Stable round focus of density along the medial spleen may be variant of accessory spleen. Electronically signed by: Guerrero Hunter MD (12/24/2019 11:50 AM) [id number]
== END | disposition home or self-care (01) ==
LOC: CT 10:34
PROVIDERS: ATTEND Internal Medicine Gastroenterology
DX: J90 Pleural effusion, not elsewhere classified (principal); K76.0 Fatty (change of) liver, not elsewhere classified; R10.9 Unspecified abdominal pain
CPT/HCPCS: 74175; Q9967

== ENCOUNTER → 2019-12-30 | Outpatient (CLI) | payer MEDICARE ==
[2019-11-05 15:10] VITALS: BP 98/60
[~2019-12-30] MED LIST changes: -IOHEXOL 350 MG/ML 100 ML VIAL. IV ONE
--- NOTE | 2019-12-30 13:44 | RAD ---
EXAM: Nuclear gastric emptying scan. HISTORY: Pain. COMPARISON: None. TECHNIQUE: Serial static images were obtained over the stomach following oral administration of 1.8 mCi of 99m-Tc sulfur colloid in an egg based meal. FINDINGS: The stomach empties into the small bowel without evidence of reflux in the area of the esophagus. The estimated time for half emptying of gastric contents, i.e. 'gastric emptying time' is 104 minutes (normal is 66 +/- 22 minutes). There is 62 percent retained tracer activity within stomach at one hour, 44 percent retained tracer activity within stomach at 2 hours, 32 percent retained tracer activity within the stomach at 3 hours, and 50 percent retained tracer activity within the stomach at 4 hours. IMPRESSION: Delayed gastric emptying. The gastric emptying half-time is 104 minutes. Electronically signed by: Rosalie House MD (12/30/2019 1:41 PM) [id number]
== END | disposition home or self-care (01) ==
LOC: NM 08:10
PROVIDERS: ATTEND Internal Medicine Gastroenterology
DX: K30 Functional dyspepsia (principal)
CPT/HCPCS: 78264; A9541

== ENCOUNTER → 2020-01-01 | Outpatient (CLI) | payer MEDICARE ==
[2019-11-05 15:10] VITALS: BP 98/60
--- NOTE | 2020-01-01 14:35 | RAD ---
EXAM: Left lower extremity venous Doppler sonogram. HISTORY: Pain and swelling. TECHNIQUE: Arreaga scale and color Doppler sonographic evaluation of the left lower extremity veins with spectral waveform analysis was performed. FINDINGS: There is normal color flow, normal compressibility and there are normal spectral waveforms in the common femoral, superficial femoral, popliteal, posterior tibial and greater saphenous veins. IMPRESSION: No Doppler evidence of lower extremity deep venous thrombosis. Electronically signed by: Rosalie House MD (01/01/2020 2:32 PM) [id number]
== END | disposition home or self-care (01) ==
LOC: US 13:30
PROVIDERS: ATTEND Family Medicine
DX: M79.605 Pain in left leg (principal); M79.89 Other specified soft tissue disorders
CPT/HCPCS: 93971

== ENCOUNTER → 2020-01-13 | Outpatient (CLI) | payer MEDICARE ==
[2019-11-05 15:10] VITALS: BP 98/60
[~2020-01-13] MED LIST changes: +REGADENOSON 0.4 MG/5 ML DISP.SYRIN. IV ONE
--- NOTE | 2020-01-13 13:14 | RAD ---
MR#: [id number] Date of Study: 01/13/2020 Ordering Physician: TANNA SHERMAN, Referring Physician: VELIA ATKINSON Tech: RT Shira Vail) (N) APPROVED REPORT Test Type: Pharmacological Stress Nurse/Tech: RT Genna (Franklyn) (N) Test Indications: chest pain Cardiac History: pericardiits, rapid heart rate 09/2019 Medications: see EHR Medical History: ex smoker Resting ECG: sinus rhthym Resting Heart Rate: 72 bpm Resting Blood Pressure: 119/69mmHg Pretest Chest Pain: None Nurse/Tech Notes Consent: The procedure was explained to the patient in lay terms. Informed consent was witnessed. Ed eout was entered into [employer]. History and Stress Test performed by RT Shira Vail) (N) Pharm. Details Pharmacologic stress testing was performed using 0.4mg per 5ml of regadenoson given intravenously ove r 7-10 seconds. POST EXERCISE Reason for Termination: Infusion complete Max HR: 109 bpm Max Blood Pressure: 120/67mmHg INTERPRETATION Stress EKG Conclusion: Baseline EKG showed sinus rhythm. No ischemic changes at peak stress. No arr hythmias. Imaging Protocol IMAGE PROTOCOL: Rest Tc-99m/stress Tc-99m 1 day Rest: Stress: Viability: Radiopharm.Tc99m ArxcfeyjyUn96q Sestamibi Dose10.7mCi 33mCi Duration 15min. 10min. Img Date 01/13/2020 01/13/2020 Inj-Img Aynk54qcd. 60min. Rest Admin Site:IV - Left HandAdministrator:YANET Robertson, ARRT (R)(N) Stress Admin Site: IV - Left HandAdministrator: YANET Robertson, ARRT (R)(N) STRESS DATA End Diast. Vol.47.0mlAv. Heart Rate80.0bpm End Syst. Vol.6.0mlCO Index BSA0.0L/min Myocardial Mass95.0gEject. Qnbojrzs01.0% Stress Rates Pk. Fill Rate3.95EDV/secLVtime Pk. Fill 229.61msec Pk. Empty Rate7.21ESV/secLVtime Pk. Eject93.87msec 1/3 Pk. Fill2.34EDV/sec Stress Scores Regional WT0.00Summed WT0.00 Regional WM0.00Summed WM1.00 Study quality was good. Left Ventricular size was Normal at Rest and Stress. Lung uptake was . Left Ventricular ejection fraction is 87%. The rest and stress images show normal perfusion, normal contraction and thickening. LV Perf. Quant 17 Seg. SSS0.00 17 Seg. SRS0.00 17 Seg. SDS0.00 Stress Defect Extent (% LAD)0.00Rest Defect Extent (% LAD)0.00Rev. Defect Extent (% LAD)0.00 Stress Defect Extent (% LCX) 5.00Rest Defect Extent (% LCX)0.00Rev. Defect Extent (% LCX)0.00 Stress Defect Extent (% RCA)0.00Rest Defect Extent (% RCA)0.00Rev. Defect Extent (% RCA)0.00 Stress Defect Extent (% SADIQ)0.90Rest Defect Extent (% SADIQ)0.00Rev. Defect Extent (% SADIQ)0.00 Conclusion 1. Regadenoson cardioisotope stress test did not show any evidence of ischemia or infarct. 2. Normal left ventricular systolic function with ejection fraction calculated at 87%. 3. Low risk for cardiac events. Signed by : Tanna Sherman, Electronically Approved : 01/13/2020 13:13:34
== END | disposition home or self-care (01) ==
LOC: NM 08:39
PROVIDERS: ATTEND Internal Medicine Cardiovascular Disease
DX: R07.9 Chest pain, unspecified (principal)
CPT/HCPCS: 78452; 93017; A9500; J2785

== ENCOUNTER 2020-02-22 08:09 | Outpatient (CLI) | payer MEDICARE ==
[2020-02-22] VITALS (12 sets, daily range): BP systolic 56–125; BP diastolic 29–77
[~2020-02-22] VITALS: Ht 182.9 cm; Wt 72.6 kg
[~2020-02-22 08:09] MED LIST changes: -ASPI-612 PO; +ASPI-886 PO; -REGADENOSON 0.4 MG/5 ML DISP.SYRIN. IV ONE
[2020-02-22 08:35] LABS: BASO % 1 % (0-3); EOS # 0.1 x10^3/uL (0.0-0.7); EOS % 2 % (0-3); HEMATOCRIT 42.1 % (39.0-53.0); LYMPH # 0.8 x10^3/uL (1.0-4.8); LYMPH % 15 % (24-48); MEAN CORPUSCULAR HEMOGLOBIN 28 pg (25-35); MEAN CORPUSCULAR HGB CONC 33 g/dL (31-37); MEAN CORPUSCULAR VOLUME 83 fL (79-100); MONO # 0.6 x10^3/uL (0.0-1.1); MONO % 10 % (0-9); NEUT # 4.2 x10^3/uL (1.8-7.7); NEUT % 72 % (31-73); PLATELET COUNT 294 x10^3/uL (140-400); RED BLOOD COUNT 5.04 x10^6/uL (4.30-5.70); RED CELL DISTRIBUTION WIDTH 16.1 % (11.5-14.5); WHITE BLOOD COUNT 5.8 x10^3/uL (4.0-11.0)
[2020-02-22 08:44] LABS: PROTHROMBIN TIME PATIENT 14.9 SEC (11.7-14.0)
[2020-02-22] MEDS ORDERED: LIDOCAINE WITH 8.4% SOD BICARB 3 ML DISP.SYRIN. ONE (09:13)
[2020-02-22] MEDS ORDERED: LIDOCAINE WITH 8.4% SOD BICARB 3 ML DISP.SYRIN. INJ ONE (09:15)
[2020-02-22] MEDS ORDERED: IV NORMAL SALINE 500ML BAG 500 ML IV ONE (10:15)
--- NOTE | 2020-02-22 11:06 | RAD ---
PROCEDURE: Ultrasound guided right thoracentesis. The procedure, risks, and complications, to include bleeding, infection and pneumothorax potentially requiring chest tube placement were explained to the patient and they understood and wished to proceed. Consent form signed. The right chest was prepped and draped using maximal sterile technique and 1% Xylocaine used for local anesthesia. Ultrasound evaluation showed moderate right pleural effusion. Under ultrasound guidance, a 5F onestop needle was inserted into the fluid and approximately 1000 mL of thin, straw colored fluid was removed and sent to the lab for evaluation]. Sedation: None Complications: During the thoracentesis, patient became lightheaded and decreasingly responsive. At this time, patient became bradycardic and hypotensive. Patient was immediately laid flat on the procedure table with leg elevation. An IV was started and a 500 mL normal saline fluid bolus was administered. Patient shortly thereafter became responsive again and stated that he was no longer feeling lightheaded. Vital signs began to normalize initially with heart rate returning to normal followed in approximately 5 minutes with blood pressures returned to relatively normal with pressures of approximately 110/60 and heart rate in the 80s. Event is thought to have been a vasovagal reaction. Chest x-ray will be obtained. Patient will be closely observed in the postprocedural period. Patient returned to the recovery area in a stable condition. IMPRESSION: Ultrasound-guided right thoracentesis. Patient likely experienced a vasovagal reaction during the procedure. Patient will be closely monitored in the postprocedural period with 500 mL IV fluid bolus and chest x-ray to be obtained.
[2020-02-22 11:18] LABS: BF CLARITY HAZY; BF COLOR YELLOW; BF SOURCE PLEURAL
[2020-02-22 11:19] LABS: BF MON % 93 %; BF OTHER % 3 %; BF PMN % 4 %; BF RBC COUNT 4533 /cmm (Not Established); BF WBC COUNT 1360 /cmm (Not Established); PH,BODY FLUID 7.25
--- NOTE | 2020-02-22 11:23 | RAD ---
AP view of the chest. Comparison: Chest radiograph dated 09/26/2019. Indication: Right side post thoracentesis Findings: Normal lung volume. No focal consolidation. Small right pleural effusion with some fluid seen along the fissure. No pneumothorax. Unchanged pulmonary vasculature. The cardiomediastinal select and great vessels are normal in appearance. No acute osseous abnormality. IMPRESSION: 1. No pneumothorax. 2. Small right pleural effusion with some fluid seen along the fissure. Electronically signed by: Shaun Calhoun MD (02/22/2020 11:20 AM) [id number]
--- NOTE | 2020-02-23 12:07 | PATHOLOGY ---
Note [facility] Accession Number: [id number] TESTS RESULT FLAG UNITS REF RANGE LAB Clinician Provided Cytology Information No. of containers..01 Other (Miscellaneous) Source: RIGHT PLEURAL FLUID DIAGNOSIS: 02 RIGHT PLEURAL FLUID NEGATIVE FOR MALIGNANT CELLS. FOCALLY REACTIVE MESOTHELIAL CELLS PRESENT WITHIN A BACKGROUND OF CHRONIC INFLAMMATORY CELLS AND FEW EOSINOPHILS AND NEUTROPHILS. THIS INTERPRETATION INCLUDES EVALUATION OF A CELL BLOCK. Signed out by: 02 Christopher Alicea MD, Pathologist NPI- [id number] Performed by: 01 Monica Kiran, Batch Trucker ([facility]) Gross description: 01 45ML, CLARK YELLOW, 1 TP 1 [place] /JOY 02/22/2020 1814 Local FLAG LEGEND: L-Low Normal,H-High Normal,LL-Alert Low,HH-Alert High <-Panic Low,>-Panic High,A-Abnormal,AA-Critical Abnormal Performed at: [facility] [address] [place] [address] Gerard Philippe MD, [address] [facility] [address] Christopher Alicea MD, Performed at: [address], [place], [place] [id number] MD Gerard Philippe MD Phone: [phone]
== END 2020-02-22 11:20 | disposition home or self-care (01) ==
LOC: INTRAD 08:09
PROVIDERS: ATTEND Family Medicine
DX: J90 Pleural effusion, not elsewhere classified (principal)
CPT/HCPCS: 32555; 36415; 71045; 82945; 83615; 83986; 84157; 85025; 85610; 87071; 87075; 88112; 88305; 89050; C1892; J3490